=== PATIENT | male | born 1990 | race Caucasian/White ===

== ENCOUNTER 2016-10-12 22:04 | Inpatient (IN) | payer OTHER ==
[~2016-10-12] VITALS: Ht 172.7 cm; Wt 72.6 kg
[2016-10-12] MEDS ORDERED: SODIUM CHLORIDE 0.9% 1,000 ML IV ONE (22:05)
[2016-10-12] MEDS ORDERED: SODIUM CHLORIDE 0.9% 1,000ML IVBOLUS ONE (22:30)
[2016-10-12 22:59] LABS: ASPARTATE AMINO TRANSFERASE 48 U/L (15-37); BLOOD UREA NITROGEN 7 mg/dL (7-18)
[2016-10-12 23:08] LABS: ACETAMINOPHEN < 2 mcg/mL (10-30)
[2016-10-12] MEDS ORDERED: LORA-446 PO (23:32)
[2016-10-12] MEDS ORDERED: CARI250T PO (23:32)
[2016-10-12] MEDS ORDERED: FLUO10CA13 PO (23:32)
[2016-10-13] MEDS ORDERED: ONDANSETRON 2MG/ML, 2ML IVPush PRN (00:30)
[2016-10-13] MEDS ORDERED: NICOTINE 21 MG/24 HR PATCH.TD24 TD SCH (00:30)
[2016-10-13 03:15] VITALS: BP 116/74
[2016-10-13 03:29] LABS: DAU SCREEN DISCLAIMER
[2016-10-13] MEDS: SODIUM CHLORIDE 0.9% 1,000 ML IV SCH ×2 (04:04→09:40)
[2016-10-13 07:58] VITALS: BP 119/68
[2016-10-13] MEDS ORDERED: POTASSIUM CHLORIDE 20 MEQ TAB.ER.PRT PO SCH (08:00)
[2016-10-13] MEDS ORDERED: FAMOTIDINE 20 MG TABLET PO SCH (09:00)
[2016-10-13 13:45] VITALS: BP 121/81
== END 2016-10-13 16:35 | disposition home or self-care (01) | DRG 917 ==
LOC: ED 22:26 → EDIP 23:52 → 4EST 10-13 00:54
PROVIDERS: ADMIT Internal Medicine
DX: T42.4X1A Poisoning by benzodiazepines, accidental (unintentional), initial encounter (principal); G92 Toxic encephalopathy; T42.8X1A Poisoning by antiparkinsonism drugs and other central muscle-tone depressants, accidental (unintentional), initial encounter; F32.9 Major depressive disorder, single episode, unspecified; F41.9 Anxiety disorder, unspecified; G89.4 Chronic pain syndrome; M41.9 Scoliosis, unspecified; F17.210 Nicotine dependence, cigarettes, uncomplicated; E87.6 Hypokalemia; F10.10 Alcohol abuse, uncomplicated; F12.20 Cannabis dependence, uncomplicated; G47.00 Insomnia, unspecified; E86.0 Dehydration; Y90.9 Presence of alcohol in blood, level not specified; Y92.89 Other specified places as the place of occurrence of the external cause; Z79.899 Other long term (current) drug therapy
CPT/HCPCS: 36415; 70450; 80053; 80307; 80329; 85025; 93005; 96360; G0480; J7030